=== PATIENT | female | born 1950 | race Caucasian/White ===

== ENCOUNTER 2018-05-20 15:47 | Emergency (ER) | payer MEDICARE, OTHER ==
[~2018-05-20] VITALS: Ht 172.7 cm; Wt 81.7 kg
--- NOTE | 2018-05-20 17:47 | EKG ---
[facility] [address] [facility] [place], [place] [address] Signed Sinus bradycardia Minimal voltage criteria for LVH, may be normal variant Borderline ECG No previous ECGs available Confirmed by SCOTT RAY DO ([id number]) on 05/20/2018 5:47:35 PM Electronically Signed By: SCOTT RAY DO 05/20/18 1747 PATIENT NAME: GURPREET RAMÍREZ Electrocardiogram DATE OF : 50 PHYSICIAN: SCOTT RAY DO REPORT #: [id number] REPORT IS CONFIDENTIAL AND NOT TO BE RELEASED WITHOUT AUTHORIZATION
== END 2018-05-21 09:41 | disposition short-term general hospital (02) ==
LOC: ED 15:47
PROC: 0T9B70Z Drainage of Bladder with Drainage Device, Via Natural or Artificial Opening (ICD-10-PCS; principal; 2018-05-20)
DX: T84.013A Broken internal left knee prosthesis, initial encounter (principal); I10 Essential (primary) hypertension; W00.0XXA Fall on same level due to ice and snow, initial encounter
CPT/HCPCS: 51702; 73560; 80053; 81001; 85025; 93005; 93010; 99285-25; J1170; J2405; J7120